=== PATIENT | female | born 1960 | race Caucasian/White ===

== ENCOUNTER 2024-04-15 13:49 | Outpatient (CLI) | payer MEDICARE, MEDICAID ==
[~2024-04-15 13:49] MED LIST: ALB0.5UD IH; ALBU8.5H4 IH; CYCL-394 PO; HYDR1TAB90 PO; SERT-153 PO
== END 2024-04-15 23:59 | disposition home or self-care (01) ==
LOC: CARD DIAG 13:49
PROVIDERS: ATTEND Family Medicine
DX: R60.0 Localized edema (principal)
CPT/HCPCS: 93306